=== PATIENT | female | born 1965 | race Caucasian/White ===

== ENCOUNTER 2017-02-01 13:50 | Emergency (ER) | payer OTHER ==
[2017-02-01] MEDS ORDERED: ONDANSETRON HCL/PF 4 MG/ 2ML VIAL IVP ONE (14:05)
[2017-02-01] MEDS ORDERED: 0.9 % SODIUM CHLORIDE 1,000 ML IV ONE (14:05)
[2017-02-01 14:34] LABS: EOSINOPHILS % 2.1 % (0.0-6.8); MEAN CORPUSCULAR HEMOGLOBIN 28.1 pg (28.0-34.0); MEAN CORPUSCULAR VOLUME 88.6 fl (80.0-100.0); MONOCYTES % 4.5 % (0.0-11.0); NEUTROPHILS # 5.6 # k/uL (1.4-7.7)
--- NOTE | 2017-02-01 14:43 | ED Physician Documentation ---
General Adult - HISTORIAN Historian: patient - HPI Stated Complaint: NOT FEELING WELL Chief Complaint: General Adult Onset: days ago Timing: still present Severity: moderate Further Comments: yes (Pt is a 51 yo female who was seen 2 days ago at another facility for an allergic rxn to Cephalexin. Pt was starting to get a sore throat, congestion and drainage, and she took some left-over cefalexin, forgetting that she had an allergy to it. Pt was tx'd with Solu-medrol and ativan and was d/c'd on prednisone 20 qd and famotidine. Pt c/o feeling strange. She says she is forgetful and "just feels weird." Pt is no longer bothered by URI sx. Pt has had 3 diarrheal bm's today.) - ROS CONST: weakness EYES/ENT: sore throat (several days ago) CVS/RESP: none GI/: nausea ("queasy") MS/SKIN/LYMPH: none NEURO/PSYCH: other (forgetful, "feels weird") - PAST HX Past History: hypertension Allergies/Adverse Reactions: Allergies Allergy/AdvReac Type Severity Reaction Status Date / Time No Known Allergies Allergy Verified 02/01/17 14:06 Home Medications: Ambulatory Orders Medication Instructions Recorded Albuterol Sulfate [Proair HFA] 1 inh IH Q4 PRN 02/01/17 Atenolol [Tenormin] 25 mg PO BID 02/01/17 Bupropion HCl [Wellbutrin Sr] 150 mg PO BID 02/01/17 Famotidine [Pepcid] 20 mg PO 717 02/01/17 Gavilyte-N 1 each PO D 02/01/17 predniSONE [Deltasone] 20 mg PO QD 02/01/17 - SOCIAL HX Smoking History: cigarettes - FAMILY HX Family History: No - VITAL SIGNS Vital Signs: Vital Signs Temp Pulse Resp BP Pulse Ox 98.2 F 62 18 122/84 98 02/01/17 13:50 02/01/17 13:50 02/01/17 13:50 02/01/17 13:50 02/01/17 13:50 - REVIEWED ASSESSMENTS Nursing Assessment Reviewed: Yes Vitals Reviewed: Yes Progress - Progress Progress: 1 L NS IVF Zofran 4 mg IV Benadryl 25 mg IV d/c instructions Probable side effect from Prednisone after taking it for allergic reaction. You may discontinue prednisone at this point. You make take Benadryl as directed as needed. ED Results Lab/Radiology - Lab Results Lab Results: Lab Results 02/01/17 14:30 WBC 8.20 K/ul K/ul (4.00-12.00) RBC 4.91 M/ul M/ul (3.90-5.20) Hgb 13.8 g/dL g/dL (12.0-16.0) Hct 43.5 % % (34.5-46.5) MCV 88.6 fl fl (80.0-100.0) MCH 28.1 pg pg (28.0-34.0) MCHC 31.7 g/dL g/dL (30.0-36.0) RDW 13.7 % % (11.3-14.3) Plt Count 227 K/mm3 K/mm3 (130-400) Neut % (Auto) 67.5 % % (39.0-79.0) Lymph % (Auto) 23.6 % % (16.0-50.0) Childress % (Auto) 4.5 % % (0.0-11.0) Eos % (Auto) 2.1 % % (0.0-6.8) Baso % (Auto) 1.0 (0.0-1.5) Neut # (Auto) 5.6 # k/uL # k/uL (1.4-7.7) Lymph # (Auto) 1.9 # k/uL # k/uL (0.6-4.0) Childress # (Auto) 0.4 # k/uL # k/uL (0.0-0.9) Eos # (Auto) 0.2 # k/uL # k/uL (0.0-0.6) Baso # (Auto) 0.1 # k/uL # k/uL (0.0-0.5) Reactive Lymphs % 1.3 % % (0.0-5.0) Reactive Lymphs # 0.1 # k/uL # k/uL (0.0-0.8) - Orders Orders: ED Orders Category Date Time Status Place IV Lock 1T Care 02/01/17 14:05 Active CBC/PLATELET/DIFF Routine Lab 02/01/17 14:30 Completed CMP [CMP] Routine Lab 02/01/17 14:30 Received 0.9 % Sodium Chloride [Normal Saline] 1,000 ml Med 02/01/17 14:05 Active IV Q1H Ondansetron HCl/Pf [Zofran 4 mg/2 ml] Med 02/01/17 14:05 Discontinued 4 mg IVP NOW ONE General Adult Physical Exam - PHYSICAL EXAM GENERAL APPEARANCE: mild anxiety EENT: pharynx normal NECK: normal inspection, supple RESPIRATORY: no resp distress, chest non-tender, breath sounds normal CVS: reg rate & rhythm, heart sounds normal ABDOMEN: soft, no organomegaly, normal bowel sounds BACK: normal inspection, no CVA tenderness SKIN: warm/dry, normal color EXTREMITIES: non-tender, normal range of motion, no evidence of injury NEURO: oriented X3, motor nml, sensation nml, other (mild anxiety) Discharge Clincal Impression: Probable steroid medication side effect, Recent tx for allergic rxn to cephalexin Referrals: Primary Doctor,No [Primary Care Provider] - Home Medications: Ambulatory Orders Albuterol Sulfate [Proair HFA] 1 inh IH Q4 PRN 02/01/17 Atenolol [Tenormin] 25 mg PO BID 02/01/17 Bupropion HCl [Wellbutrin Sr] 150 mg PO BID 02/01/17 Famotidine [Pepcid] 20 mg PO 717 02/01/17 Gavilyte-N 1 each PO D 02/01/17 predniSONE [Deltasone] 20 mg PO QD 02/01/17 Condition: Stable Disposition: 01 HOME, SELF-CARE Decision to Admit: NO Decision Time: 15:24
[2017-02-01 14:52] LABS: eGFR (African) > 60; eGFR (Non-African) > 60
[2017-02-01] MEDS ORDERED: diphenhydrAMINE HCL 50 MG/ML VIAL IVP ONE (15:03)
[2017-02-01 15:44] VITALS: BP 129/72
== END 2017-02-01 15:20 | disposition home or self-care (01) ==
LOC: ED 13:50
DX: J02.9 Acute pharyngitis, unspecified (principal)
CPT/HCPCS: 80053; 85025; J1200; J2405; J7030; 96361; 96374; 96375; 99283; S1016

== ENCOUNTER 2017-04-22 00:05 | Emergency (ER) | payer OTHER ==
[2017-04-22] MEDS ORDERED: MAG HYDROX/AL HYDROX/SIMETH 30 ML, Lidocaine 2%Visc 15ml 20 MG, PHENobarb/HYOSCY/ATROPI... PO ONE ×3 (00:15)
[2017-04-22] MEDS ORDERED: ONDANSETRON HCL/PF 4 MG/ 2ML VIAL IVP ONE (00:15)
[2017-04-22] MEDS ORDERED: 0.9 % SODIUM CHLORIDE 1,000 ML IV ONE (00:15)
[2017-04-22 00:39] LABS: BASOPHILS % 0.5 (0.0-1.5); EOSINOPHILS % 2.2 % (0.0-6.8); MEAN CORPUSCULAR HEMOGLOBIN 27.9 pg (28.0-34.0); MEAN CORPUSCULAR VOLUME 89.6 fl (80.0-100.0); MONOCYTES % 3.9 % (0.0-11.0); NEUTROPHILS # 8.1 # k/uL (1.4-7.7)
[2017-04-22 00:40] LABS: eGFR (African) > 60; eGFR (Non-African) > 60
[2017-04-22] MEDS ORDERED: Lidocaine 2%Visc 15ml 20 MG/ML UDC ONE (00:42)
[2017-04-22] MEDS ORDERED: MAGNESIUM HYDROXIDE/AL HYDROX 30 ML UDC PO ONE (00:42)
--- NOTE | 2017-04-22 01:36 | ED Physician Documentation ---
Abdominal Pain - HISTORIAN Historian: patient - HPI Stated Complaint: N/V/D, epigastric burning Chief Complaint: Abdominal Pain Onset: days ago Duration: worse Timing: worse Context: bad food (ate at buffet yesterday 1630) Severity: moderate Quality: pain, burning (epigastric) Associated Symptoms: nausea, vomiting, diarrhea (x1) Exacerbated by: nothing Relieved by: nothing Further Comments: yes (51 year old female patient presents with complaints of epigastric pain, bloating, nausea and vomiting. Patient states she ate at the buffet at the [employer] yesterday before symptoms started, friend who ate at the buffet is also sick with similar symptoms.) - ROS CONST: no problems GI/: none CVS/RESP: none EYES/ENT: none MS/SKIN/LYMPH: none NEURO/PSYCH: none - SOCIAL HX Smoking History: cigarettes - FAMILY HX Family History: denies: none - PAST HX Past History: GERD Other History: other (anxiety) Surgeries/Procedures: appendectomy Home Medications: Ambulatory Orders Medication Instructions Recorded Albuterol Sulfate [Proair HFA] 1 inh IH Q4 PRN 02/01/17 Atenolol [Tenormin] 25 mg PO BID 02/01/17 Bupropion HCl [Wellbutrin Sr] 150 mg PO BID 02/01/17 Famotidine [Pepcid] 20 mg PO 717 02/01/17 Gavilyte-N 1 each PO D 02/01/17 predniSONE [Deltasone] 20 mg PO QD 02/01/17 Allergies/Adverse Reactions: Allergies Allergy/AdvReac Type Severity Reaction Status Date / Time No Known Allergies Allergy Verified 02/01/17 14:06 - VITAL SIGNS Vital Signs: Vital Signs Temp Pulse Resp BP Pulse Ox 129/72 02/01/17 15:30 - REVIEWED ASSESSMENTS Nursing Assessment Reviewed: Yes Vitals Reviewed: Yes Progress - Progress Progress: Patient continues to c/o epigastric pain and bloating after GI cocktail. No vomiting while in ER. - EKG/XRAY/CT EKG: rhythm (SR, rate 67, no acute changes. ) ED Results Lab/Radiology - Lab Results Lab Results: Lab Results 04/22/17 04/22/17 00:24 00:23 WBC 10.20 K/ul K/ul (4.00-12.00) RBC 5.22 M/ul H M/ul (3.90-5.20) Hgb 14.5 g/dL g/dL (12.0-16.0) Hct 46.7 % H % (34.5-46.5) MCV 89.6 fl fl (80.0-100.0) MCH 27.9 pg L pg (28.0-34.0) MCHC 31.1 g/dL g/dL (30.0-36.0) RDW 13.1 % % (11.3-14.3) Plt Count 256 K/mm3 K/mm3 (130-400) Neut % (Auto) 79.4 % H % (39.0-79.0) Lymph % (Auto) 12.5 % L % (16.0-50.0) Archer % (Auto) 3.9 % % (0.0-11.0) Eos % (Auto) 2.2 % % (0.0-6.8) Baso % (Auto) 0.5 (0.0-1.5) Neut # (Auto) 8.1 # k/uL H # k/uL (1.4-7.7) Lymph # (Auto) 1.3 # k/uL # k/uL (0.6-4.0) Archer # (Auto) 0.4 # k/uL # k/uL (0.0-0.9) Eos # (Auto) 0.2 # k/uL # k/uL (0.0-0.6) Baso # (Auto) 0.0 # k/uL # k/uL (0.0-0.5) Reactive Lymphs % 1.4 % % (0.0-5.0) Reactive Lymphs # 0.1 # k/uL # k/uL (0.0-0.8) Sodium 139 mmol/L mmol/L (136-145) Potassium 4.1 mmol/L mmol/L (3.5-5.1) Chloride 103 mmol/L mmol/L (98-107) Carbon Dioxide 27 mmol/L mmol/L (22-30) BUN 16 mg/dL mg/dL (7-17) Creatinine 0.70 mg/dL mg/dL (0.52-1.04) Estimated Creat Clear 210 Est GFR ( Amer) > 60 (60 - ) Est GFR (Non-Af Amer) > 60 (60 - ) Glucose 125 mg/dL H mg/dL (74-106) Calcium 9.0 mg/dL mg/dL (8.4-10.2) Total Bilirubin 0.3 mg/dL mg/dL (0.2-1.3) AST 18 U/L U/L (15-46) ALT 38 U/L U/L (13-69) Alkaline Phosphatase 75 U/L U/L (38-126) Total Protein 7.5 g/dL g/dL (6.3-8.2) Albumin 3.9 g/dL g/dL (3.5-5.0) - Radiology Radiology Impressions: Upright abdomen Clinical history pain Technique AP upright abdomen. Findings: No free air is seen. There are few nonspecific air-fluid levels in the abdominal bowel. The stomach is distended with air fluid level. no Mass is identified. S1 is lumbarized. No renal calcifications are seen. Impression: Air fluid level in the stomach and a few small air fluid levels in the upper abdominal bowel possible ileus. No evidence of perforation or pathologic calcification Electronically signed on Apr 22, 2017 1:42:06 AM REFRIGERATOR CABINETMAKER by: Rodney Morocho - Orders Orders: ED Orders Category Date Time Status Place IV Lock 1T Care 04/22/17 00:15 Active ABDOMEN COMPLETE [RAD] Stat Exams 04/22/17 Ordered CBC/PLATELET/DIFF Stat Lab 04/22/17 00:24 Completed CMP Stat Lab 04/22/17 00:23 Completed 0.9 % Sodium Chloride [Normal Saline] 1,000 ml Med 04/22/17 00:15 Discontinued IV NOW Ketorolac Tromethamine [Toradol] Med 04/22/17 01:50 Once 30 mg IVP NOW ONE Lidocaine 2%Visc 15ml [Xylocaine] Med 04/22/17 00:42 Discontinued 300 mg .ROUTE .STK-MED ONE Mag Hydrox/Al Hydrox/Simeth [Mylanta] 30 ml Med 04/22/17 00:15 Discontinued Lidocaine 2%Visc 15ml [Xylocaine] 20 mg PHENobarb/HYOSCY/ATROPINE/SCOP [] 10 ml PO NOW Magnesium Hydroxide/Al Hydrox [Maalox] Med 04/22/17 00:42 Discontinued 30 ml PO .STK-MED ONE Ondansetron HCl/Pf [Zofran 4 mg/2 ml] Med 04/22/17 00:15 Discontinued 4 mg IVP NOW ONE Promethazine HCl [Phenergan] Med 04/22/17 01:46 Once 25 mg PO NOW ONE Simethicone [Gas-X] Med 04/22/17 01:47 Once 160 mg PO NOW ONE EKG WITH COMPARISON Stat Ther 04/22/17 00:44 Ordered Abdominal Pain Physical Exam - Physical Exam General Appearance: mild distress EENT: eye inspection normal, EARNESTINE RESPIRATORY: no resp distress, chest non-tender, breath sounds normal CVS: reg rate & rhythm, heart sounds normal, equal pulses, no murmur, no gallop , PMI nml, no JVD, no friction rub, 24 ABDOMEN: soft, normal bowel sounds, no distension, tenderness (epigastic, negative Dunn's). No: abnormal bowel sounds, McBurney's point tenderne BACK: normal inspection, other (right paraspinous muscles of T-spine with spasm , and tenderness to palpation.) SKIN: normal color, warm/dry, NR, INT, PAL, DR EXTREMITIES: non-tender, normal range of motion, no evidence of injury, no edema , J, HEAD CHAR FILTER TANK TENDER NEURO: oriented X3, CN's nml as tested, motor nml, sensation nml Vital Signs: Vital Signs Temp Pulse Resp BP Pulse Ox 129/72 02/01/17 15:30 Discharge Clincal Impression: Epigastric abdominal pain Food poisoning Qualifiers: Encounter type: initial encounter Injury intent: accidental or unintentional Qualified Code(s): T62.91XA - Toxic effect of unspecified noxious substance eaten as food, accidental (unintentional), initial encounter Back pain Qualifiers: Back pain location: thoracic back pain Chronicity: acute Back pain laterality: right Qualified Code(s): M54.6 - Pain in thoracic spine Referrals: Primary Doctor,No [Primary Care Provider] - 2 Days Additional Instructions: Diet: Clear liquids Sprite/7-up Juices apple, white grape Gatorade/Powerade Jello Popsicles When tolerating clear liquids, advance to bland/brat diet - such as crackers, rice, Bananas, apples/applesauce or toast Return to the emergency department or call your doctor, if you are having severe abdominal pain, fever >101.0, or if there is blood in the vomit or diarrhea, or you cannot keep down liquids or solid food. OTC gas-ex, or simethicone per package directions. A prescription for nausea medication has been sent to the pharmacy. Condition: Stable Disposition: 01 HOME, SELF-CARE Decision to Admit: NO Decision Time: 01:44
[2017-04-22] MEDS ORDERED: PROMETHAZINE HCL 25 MG TABLET PO ONE (01:46)
[2017-04-22] MEDS ORDERED: SIMETHICONE 80 MG TAB.CHEW PO ONE (01:47)
[2017-04-22] MEDS ORDERED: KETOROLAC TROMETHAMINE 30 MG/1ML VIAL IVP ONE (01:50)
[2017-04-22 02:51] VITALS: BP 119/65
--- NOTE | 2017-04-22 06:54 | Diagnostic Imaging Report ---
YUE SIEGEL (KIMBERLY) - ER [facility] [address] [facility] [address] [place] [address]. [id number] Report Submission Date: Apr 22, 2017 1:42:06 AM DRY ROOM ATTENDANT Patient Study Name: ELIAS LOPEZ Date: Apr 22, 2017 1:24:54 AM DRY ROOM ATTENDANT Modality Type: CR Gender: F Description: ABDOMEN : 67 Institution: [facility] Physician: YUE SIEGEL) - ER Upright abdomen Clinical history pain Technique AP upright abdomen. Findings: No free air is seen. There are few nonspecific air-fluid levels in the abdominal bowel. The stomach is distended with air fluid level. no Mass is identified. S1 is lumbarized. No renal calcifications are seen. Impression: Air fluid level in the stomach and a few small air fluid levels in the upper abdominal bowel possible ileus. No evidence of perforation or pathologic calcification Electronically signed on Apr 22, 2017 1:42:06 AM DRY ROOM ATTENDANT by: Rodney DICKSON
== END 2017-04-22 02:40 | disposition home or self-care (01) ==
LOC: ED 00:05
DX: T62.91XA Toxic effect of unspecified noxious substance eaten as food, accidental (unintentional), initial encounter (principal); X58.XXXA Exposure to other specified factors, initial encounter; Y93.9 Activity, unspecified; Y99.9 Unspecified external cause status; M54.6 Pain in thoracic spine
CPT/HCPCS: 74020; 80053; 85025; A9270; J1885; J2405; J7030; 96361; 96374; 96375; 99283; S1016